=== PATIENT | male | born 1965 | race African-American/Black ===

== ENCOUNTER → 2019-04-27 | Outpatient (CLI) | payer MEDICAID ==
--- NOTE | 2019-04-28 02:46 | KCIC ---
EXAM: MRI left shoulder DATE: 04/27/2019 2:45 PM COMPARISON: Left shoulder radiographs 04/21/2019 INDICATION: Left shoulder pain. Limited range of motion. TECHNIQUE: Multiplanar, multisequence MRI of the left shoulder was performed without contrast. FINDINGS: AC joint is congruent. Mild AC joint degenerative change. Type II acromion. No os acromiale. Subacromial-subdeltoid bursal distention likely from full-thickness rotator cuff tear and bursitis. There is a full-thickness tear of the anterior fibers of the supraspinatus tendon measuring approximately 1.5 cm in AP dimension. This extends posteriorly as a partial-thickness articular sided tear of the supraspinatus tendon and infraspinatus tendon extending additional 2 cm, involving 50 percent tendon thickness. Background of moderate increased signal within the supraspinatus, infraspinatus and subscapularis consistent with tendinosis. Rotator cuff muscle signal and bulk is normal. The extra-articular long head biceps tendon is seen within the bicipital groove. Intra-articular long head biceps tendon is intact, normal in signal and morphology. Bone marrow signal is normal. Negative findings of AVN or fracture. Survey of articular cartilage within normal limits. IMPRESSION: 1. Full-thickness tear of the anterior fibers of the supraspinatus tendon extends posteriorly as a partial-thickness articular sided tear of the supraspinatus and infraspinatus tendons. 2. Background of supraspinatus, infraspinatus and subscapularis tendinosis. 3. No rotator cuff muscle atrophy. Electronically signed by: Chato Wiggins MD (04/28/2019 2:43 AM) [facility]
== END | disposition home or self-care (01) ==
LOC: KCIC MRI 09:39 → EDBD 14:45
PROVIDERS: ATTEND Orthopaedic Surgery Sports Medicine
DX: S46.012A Strain of muscle(s) and tendon(s) of the rotator cuff of left shoulder, initial encounter (principal); M19.012 Primary osteoarthritis, left shoulder; X58.XXXA Exposure to other specified factors, initial encounter; Y93.89 Activity, other specified; Y92.89 Other specified places as the place of occurrence of the external cause; Y99.8 Other external cause status
CPT/HCPCS: 73221

== ENCOUNTER 2019-05-04 08:17 | Day surgery (SDC) | payer MEDICAID ==
[~2019-05-04] VITALS: Ht 167.6 cm; Wt 56.7 kg
[~2019-05-04 08:17] MED LIST: BUPIVACAINE MPF 0.5% 30 ML VIAL. ONE; EPINEPHrine VIAL 30 MG/30 ML VIAL ONE; HYDROmorphone 2 MG/ML VIAL IV PRN; IV RINGERS,LACTATED 1000ML 1,000 ML IV SCH; LIDOCAINE 1% 20 ML VIAL. ONE; LIDOCAINE 1% PF 2 ML VIAL. ID PRN; MORPHINE SULFATE 2 MG/ML VIAL. IV PRN; ONDANSETRON PF 4 MG/2 ML VIAL. IV PRN; PROCHLORPERAZINE 10 MG/2 ML VIAL. IV PRN; fentaNYL PF VIAL 100 MCG/2 ML VIAL IV PRN
[2019-05-04] MEDS ORDERED: ROCURONIUM 50 MG/5 ML VIAL. ONE (08:28)
[2019-05-04] MEDS ORDERED: DEXAMETHASONE SOD PHOS 4 MG/ML VIAL ONE (08:28)
[2019-05-04] MEDS ORDERED: ONDANSETRON PF 4 MG/2 ML VIAL. ONE (08:28)
[2019-05-04] MEDS ORDERED: MIDAZOLAM HCL/PF 2 MG/2 ML VIAL. ONE ×2 (08:28→09:11)
[2019-05-04] MEDS ORDERED: fentaNYL PF VIAL 100 MCG/2 ML VIAL ONE ×2 (08:28→11:54)
[2019-05-04] MEDS ORDERED: PROPOFOL 20 ML IV ONE (08:28)
[2019-05-04] MEDS ORDERED: LIDOCAINE 2% PF 5 ML VIAL. ONE (08:28)
--- NOTE | 2019-05-04 09:09 | DISCH ---
DISCHARGE INSTRUCTIONS Condition on Discharge Condition on Discharge: Stable Activity After Discharge Activity Instructions for Disc: Other ROM activity Other activity instructions: arm to remain in sling Bathing Instructions: Shower-keep dressing dry Weight Bearing Status after Di: Non weight bearing Diet after Discharge Diet after Discharge: Regular Wound Incision Care Wound/Incision Care: Ice to area for comfort, Keep wound/cast CDI, Change dressing Other wound/incision instructi: okay to change dressing after [address] after DC Call your doctor for: Concerns you may have Follow-Up Follow up with: Saumya in 2 weeks SHEILA SELBY II, MD May 04, 2019 09:09
[2019-05-04] MEDS ORDERED: ROPIVacaine 0.5% PF 20 ML VIAL. ONE (09:12)
[2019-05-04] MEDS ORDERED: GLYCOPYRROLATE 1 MG/5 ML VIAL. ONE (10:27)
[2019-05-04] MEDS ORDERED: NEOSTIGMINE METHYLSULFATE 5 MG/5 ML SYRINGE. ONE (10:27)
[2019-05-04] MEDS ORDERED: PHENYLEPHRINE 10 MG/ML VIAL. ONE (10:27)
[2019-05-04] MEDS ORDERED: PHENYLEPHRINE in 0.9% NACL PF 1 MG/10 ML SYRINGE. IV ONE (11:13)
[2019-05-04] MEDS ORDERED: SEVOFLURANE 61 TO 120 MINUTES. IH ONE (11:15)
--- NOTE | 2019-05-04 11:31 | PDOC4 ---
Operative Note Operative Note Date of procedure: 05/04/2019 Surgeon: Howard Selby Clay Mixer: Angelic Ortega, certified travel counselor Preoperative diagnosis: #1 Right shoulder rotator cuff tear #2 15 x 10 mm full-thickness loose cartilage flap at glenoid Postoperative diagnosis: Same Procedure performed: #1 Arthroscopic right shoulder rotator cuff repair #2 arthroscopic glenoid microfracture Anesthesia: Gen. plus regional nerve block Findings: #1 small amount of degenerative fraying at the labrum, biceps anchor intact #2 full-thickness rotator cuff tear, approximately 2 cm in length #3 no loose bodies #4 humeral head unremarkable #5 15 x 10 mm cartilage defect at glenoid Blood loss: 10mL Components inserted: [employer] Helacoil suture anchors �2 with lateral row fixation for rotator cuff Reason for procedure: Patient is a very pleasant gentleman who has had chronic shoulder pain for years. Clinical and radiographic examination, including MRI, were consistent with the preoperative diagnosis. Due to the more acute nature of the tear, I discussed surgery with him. Because of his symptoms and dysfunction, we had a discussion of the risks, benefits, alternatives the above surgery and he wished to proceed. Description of procedure: Patient was greeted in the preoperative holding area where the correct extremity was verified and marked. They were taken to the preoperative holding area where the anesthesiology team placed a regional nerve block. The patient was then taken back to the operative suite and antibiotics were started as they were brought back. Once in the operative room, the patient was transferred gently supine to the operating room table after successful induction of a general anesthetic. After this, he was sat up in a beachchair position maintaining his C-spine in neutral position, large pad under his legs, he was secured to the bed. We then prepped and draped his right upper extremity and shoulder girdle in our usual sterile fashion, we conducted our standard preoperative timeout. I palpated and marked surface anatomy for my planned portal sites. I then used a spinal needle to localize a posterior superior portal and incised skin in accordance with this. After this, I introduced the blunt arthroscopic trocar into the glenohumeral joint followed by the camera. I used a spinal needle to localize an anterosuperior portal and incised skin in accordance with this. I then introduced my arthroscopic probe and conducted my diagnostic arthroscopy with the above-noted findings. I then debrided the loose cartilage flap and remove the calcified layer with angled ring curettes and a shaver device. I then debrided a small amount of degenerative fraying at the labrum anteriorly as well. After this, used my microfracture awl to place small holes in his glenoid, confirmed appropriate depth noting extravasation of marrow elements on backward suction. I then performed repeated aspiration maneuvers in his glenohumeral joint to help remove any loose bony debris. I next created a lateral portal under spinal needle localization and she introduced my shaver and debrided the rotator cuff and footprint from this vantage point. I then repositioned my camera into the subacromial space and performed a bursectomy with combination of shaver and electrocautery. I then continued on debriding the rotator cuff tendon. Once I was satisfied had taken enough I placed 2 anchors into the footprint and created an accessory anterolateral and posterolateral portals for suture management. I then shuttled the suture limbs through in a simple configuration with the suture passing device and tied them down securely using arthroscopic knot-tying techniques. I cut one limb from each suture and incorporating the remainder into a lateral row fixation. The tear was stable to probing and gentle rotation of the arm. I then removed all loose bony debris and the excess arthroscopic fluid. I took my final pictures prior to this. After this, all the excess fluid and instrumentation was removed. The portals were closed with simple interrupted 3-0 nylon. Sterile dressing was applied followed by an abduction pillow sling. Patient tolerated surgery well. No complications. All counts correct �2 prior to wound closure. At the conclusion, he was laid supine and transferred gently supine to the recovery room cart and taken to the PACU in a stable and extubated condition. Postoperative plan is discharge him home, nonweightbearing for 6 weeks. We�ll get him started on physical therapy. He will follow up with me in 2 weeks, sooner should a problem arise. HOWARD SELBY II, MD May 04, 2019 11:31
[2019-05-04] MEDS ORDERED: ONDA8TAB9 PO (11:42)
[2019-05-04] MEDS ORDERED: DOCU-109 PO (11:43)
[2019-05-04] MEDS ORDERED: OXYC1TAB15 PO (11:43)
[2019-05-04 12:00] VITALS: BP 136/78
[2019-05-04] MEDS ORDERED: oxyCODONE/APAP 5/325 1 TAB TABLET PO ONE (12:00)
== END 2019-05-04 12:44 | disposition home or self-care (01) ==
LOC: SURG 08:17
DX: S46.011A Strain of muscle(s) and tendon(s) of the rotator cuff of right shoulder, initial encounter (principal); F17.210 Nicotine dependence, cigarettes, uncomplicated; M19.022 Primary osteoarthritis, left elbow; F41.9 Anxiety disorder, unspecified; F32.9 Major depressive disorder, single episode, unspecified; X58.XXXA Exposure to other specified factors, initial encounter; Y93.89 Activity, other specified; Y92.89 Other specified places as the place of occurrence of the external cause; Y99.8 Other external cause status; Z98.890 Other specified postprocedural states; Z90.49 Acquired absence of other specified parts of digestive tract
CPT/HCPCS: 29827; 36415; 82306; A7015; C1713; C1782; J0171; J0690; J1100; J2001; J2250; J2370; J2405; J2704; J2710; J2795; J3010; J3490; J7120

== ENCOUNTER 2021-04-22 23:55 | Emergency (ER) | payer MEDICAID ==
[~2021-04-22 23:55] MED LIST changes: -BUPIVACAINE MPF 0.5% 30 ML VIAL. ONE; +DOCU-109 PO; -EPINEPHrine VIAL 30 MG/30 ML VIAL ONE; -HYDROmorphone 2 MG/ML VIAL IV PRN; -IV RINGERS,LACTATED 1000ML 1,000 ML IV SCH; -LIDOCAINE 1% 20 ML VIAL. ONE; -LIDOCAINE 1% PF 2 ML VIAL. ID PRN; -MORPHINE SULFATE 2 MG/ML VIAL. IV PRN; +ONDA8TAB9 PO; -ONDANSETRON PF 4 MG/2 ML VIAL. IV PRN; +OXYC1TAB15 PO; -PROCHLORPERAZINE 10 MG/2 ML VIAL. IV PRN; -fentaNYL PF VIAL 100 MCG/2 ML VIAL IV PRN
[2021-04-23 04:42] VITALS: BP 119/73
== END 2021-04-23 04:45 | disposition left against medical advice (07) ==
LOC: ER 23:55
DX: F19.10 Other psychoactive substance abuse, uncomplicated (principal); Z53.21 Procedure and treatment not carried out due to patient leaving prior to being seen by health care provider